=== PATIENT | male | born 1965 | race Caucasian/White ===

== ENCOUNTER 2020-04-03 18:58 | Emergency (ER) | payer OTHER ==
[~2020-04-03] VITALS: Ht 185.4 cm; Wt 95.2 kg
[~2020-04-03 18:58] MED LIST: ALBU90OI INH; ALPR.25 PO; AMOCLA250; CEPH500 PO; CIPR500 PO; CITA20 PO; CLON.5 PO; CRUTCH3 USE; CYCL10 PO; HYDACE5 PO; HYDACE7.5; HYDMOR2 PO; IBUP600 PO; IBUP800 PO; MONDOXYNE NL100 MG PO; NAPR500 PO; NAPR550 PO; OXYACE5T PO; OXYC10ER PO; OXYC15ER PO; OXYC5; OXYC5 PO; PROM25 PO; RIFA300; RXCYCL10 PO; RXHYDACE PO; RXHYDMOR2 PO; RXIBUP800 PO; RXNAPNA550 PO; RXOXYACE PO; SENNP; SULTRIDS; SULTRIDS PO; [UNRECOGNIZED DRUG - REMARK]
== END 2020-04-03 21:48 | disposition home or self-care (01) ==
LOC: ER 18:58
DX: T65.891A Toxic effect of other specified substances, accidental (unintentional), initial encounter (principal); H10.213 Acute toxic conjunctivitis, bilateral; L25.3 Unspecified contact dermatitis due to other chemical products; F17.210 Nicotine dependence, cigarettes, uncomplicated; Z88.2 Allergy status to sulfonamides; Z88.0 Allergy status to penicillin
CPT/HCPCS: 96372; 99283-25; A9270; J1170